=== PATIENT | female | born 1975 | race Caucasian/White ===

== ENCOUNTER 2023-03-26 10:41 | Emergency (ER) | payer MEDICAID ==
[~2023-03-26] VITALS: Ht 175.3 cm; Wt 100.0 kg
[~2023-03-26 10:41] MED LIST: BUSP5TAB26 PO; GABA300C PO; HYDR-3686 PO; LAMO25TA5 PO; PRAZ1CAP5 PO; PROP10TA10 PO; SERT150C PO; TRAZ-251 PO
[2023-03-26 11:41] LABS: URINE HCG NEGATIVE (NEG)
[2023-03-26 11:43] LABS: BILIRUBIN,URINE MODERATE (Neg); CLARITY,URINE CLOUDY (Clear); COLOR,URINE YELLOW (Yellow); GLUCOSE, URINE NEGATIVE (Neg); KETONES,URINE >=80 mg/dl (Neg); LEUKOCYTE ESTERASE ,URINE NEGATIVE (Neg); NITRITES, URINE NEGATIVE (Neg); OCCULT BLOOD,URINE NEGATIVE (Neg); PROTEIN,URINE NEGATIVE (Neg); UROBILINOGEN,URINE 0.2 E.U/dL (0.2-1.0)
[2023-03-26 11:44] LABS: UA COLLECTION TYPE VOIDED
[2023-03-26 12:06] LABS: URINE AMPHETAMINE SCREEN NEGATIVE (Neg); URINE BARBITUATE SCREEN NEGATIVE (Neg); URINE BENZODIAZEPINES SCREEN NEGATIVE (Neg); URINE CANNABINOID SCREEN POSITIVE (Neg); URINE COCAINE SCREEN NEGATIVE (Neg); URINE METHADONE SCREEN NEGATIVE (Neg); URINE OPIATE SCREEN NEGATIVE (Neg); URINE PHENCYCLIDINE SCREEN NEGATIVE (Neg)
[2023-03-26 12:15] LABS: BASOPHILS # (AUTO) 0.1 X10'3 (0-0.2); BASOPHILS % (AUTO) 1.6 % (0-1); EOSINOPHILS % (AUTO) 0.1 % (0-6); HEMATOCRIT 41.3 % (35.0-45.0); HEMOGLOBIN 13.8 g/dl (12.0-16.0); LYMPHOCYTES # (AUTO) 1.2 X10'3 (1.1-4.8); LYMPHOCYTES % (AUTO) 17.8 % (21-51); MEAN CORPUSCULAR HEMOGLOBIN 28.8 PG (27.0-31.0); MEAN CORPUSCULAR HGB CONC 33.5 g/dL (33.0-36.5); MEAN CORPUSCULAR VOLUME 85.9 FL (78-98); MEAN PLATELET VOLUME 7.7 FL (7.4-10.4); MONOCYTES # (AUTO) 0.6 X10'3 (0-0.9); MONOCYTES % (AUTO) 8.7 % (2-12); NEUTROPHILS % (AUTO) 71.8 % (42-75); PLATELET COUNT 381 X10'3 (140-440); RED BLOOD COUNT 4.81 X10'6 (4.20-5.60); RED CELL DISTRIBUTION WIDTH 15.3 % (11.5-14.5)
[2023-03-26 12:17] LABS: MUCUS STRANDS MANY /LPF (Neg); SQUAMOUS EPITHELIAL CELL,UR MANY /LPF (FEW)
[2023-03-26 12:18] LABS: BACTERIA,URINE 1+ /HPF (Neg); RBC,URINE 0-2 /HPF (0-2); WBC,URINE 0-4 /HPF (0-4)
[2023-03-26 12:21] LABS: ALANINE AMINOTRANSFERASE 68 U/L (12-78); ALBUMIN/GLOBULIN RATIO 0.7 (1.1-1.5); ALKALINE PHOSPHATASE 104 IU/L (46-116); ANION GAP 14 (8-16); ASPARTATE AMINO TRANSFERASE 73 U/L (10-37); BILIRUBIN,TOTAL 0.8 MG/DL (0.1-1.0); BLOOD UREA NITROGEN 11 MG/DL (7-18); BUN/CREATININE RATIO 10.9 (10.0-20.0); CALCIUM 9.3 MG/DL (8.5-10.1); CHLORIDE 100 MMOL/L (99-107); CREATININE 1.01 MG/DL (0.40-0.90); ETHANOL < 10 MG/DL (<10); GLUCOSE 209 MG/DL (70-104); SODIUM 137 MMOL/L (135-145); TOTAL PROTEIN 7.3 G/DL (6.4-8.2); eCRCL 72 ML/MIN; eGFR 59 ML/MIN
[2023-03-26 12:32] LABS: POTASSIUM 2.9 MMOL/L (3.5-5.1)
[2023-03-26] MEDS ORDERED: POTASSIUM BICARB 20meq eff tab 20 MEQ TABLET.EFF PO SCH ×2 (12:35→17:05)
[2023-03-26] MEDS ORDERED: POTASSIUM BICARB 20meq eff tab 20 MEQ TABLET.EFF PO ONE ×2 (12:35→17:05)
[2023-03-26] MEDS ORDERED: LORazepam 1 MG tablet PO ONE (13:20)
[2023-03-26 15:29] LABS: ACETAMINOPHEN < 2.0 UG/ML (10-30)
[2023-03-27 07:36] VITALS: BP 112/74; PULSE 82; O2SAT 99
[2023-03-27 08:57] VITALS: RESP 18
[2023-03-27] MEDS ORDERED: LORazepam 1 MG tablet PO ONE (11:15)
[2023-03-27] MEDS ORDERED: RISP2TAB85 PO (13:11)
[2023-03-27] MEDS ORDERED: BUSP5TAB3 PO (13:11)
[2023-03-27] MEDS ORDERED: TOP100T PO (13:11)
[2023-03-27] MEDS ORDERED: TRAZ-256 PO (13:13)
[2023-03-27] MEDS ORDERED: SERT-434 PO (13:13)
[2023-03-27] MEDS ORDERED: HYDR50TA65 PO (13:13)
[2023-03-27] MEDS ORDERED: LAMO25TA72 PO (13:25)
[2023-03-27 17:34] VITALS: TEMP 98.9
== END 2023-03-27 17:52 ==
LOC: ER 10:42
DX: T65.891A Toxic effect of other specified substances, accidental (unintentional), initial encounter (principal); F41.9 Anxiety disorder, unspecified; F32.A Depression, unspecified; Z20.822 Contact with and (suspected) exposure to COVID-19; Y92.89 Other specified places as the place of occurrence of the external cause
CPT/HCPCS: 36415; 80053; 80305; 80320; 80329; 81001; 81025; 84132; 84443; 85025; 87811; 93005; 99284

== ENCOUNTER 2024-03-29 16:09 | Inpatient (IN) | payer MEDICAID ==
[~2024-03-29] VITALS: Ht 175.3 cm; Wt 100.0 kg
[~2024-03-29 16:09] MED LIST changes: -BUSP5TAB26 PO; +BUSP5TAB3 PO; -HYDR-3686 PO; +HYDR50TA65 PO; -LAMO25TA5 PO; +LAMO25TA72 PO; +RISP-32 PO; +SERT-434 PO; -SERT150C PO; +TOP100T PO; -TRAZ-251 PO; +TRAZ-256 PO
[2024-03-29 16:37] LABS: BASOPHILS # (AUTO) 0.1 X10'3 (0-0.2); BASOPHILS % (AUTO) 1.5 % (0-1); EOSINOPHILS # (AUTO) 0.4 X10'3 (0-0.9); EOSINOPHILS % (AUTO) 5.2 % (0-6); HEMATOCRIT 39.9 % (35.0-45.0); HEMOGLOBIN 13.3 g/dl (12.0-16.0); LYMPHOCYTES # (AUTO) 2.2 X10'3 (1.1-4.8); LYMPHOCYTES % (AUTO) 30.4 % (21-51); MEAN CORPUSCULAR HEMOGLOBIN 28.7 PG (27.0-31.0); MEAN CORPUSCULAR HGB CONC 33.3 g/dL (33.0-36.5); MEAN CORPUSCULAR VOLUME 86.1 FL (78-98); MEAN PLATELET VOLUME 7.8 FL (7.4-10.4); MONOCYTES # (AUTO) 0.6 X10'3 (0-0.9); MONOCYTES % (AUTO) 8.3 % (2-12); NEUTROPHILS % (AUTO) 54.6 % (42-75); PLATELET COUNT 305 X10'3 (140-440); RED BLOOD COUNT 4.64 X10'6 (4.20-5.60); RED CELL DISTRIBUTION WIDTH 14.4 % (11.5-14.5); WHITE BLOOD COUNT 7.4 X10'3 (4.5-11.0)
[2024-03-29 16:42] LABS: BILIRUBIN,URINE NEGATIVE (Neg); CLARITY,URINE SLIGHTLY CLOUDY (Clear); COLOR,URINE YELLOW (Yellow); GLUCOSE, URINE NEGATIVE (Neg); KETONES,URINE NEGATIVE (Neg); LEUKOCYTE ESTERASE ,URINE TRACE (Neg); NITRITES, URINE NEGATIVE (Neg); OCCULT BLOOD,URINE LARGE (Neg); PROTEIN,URINE TRACE mg/dl (Neg); UROBILINOGEN,URINE 0.2 E.U/dL (0.2-1.0)
[2024-03-29 16:51] LABS: ALBUMIN 3.1 G/DL (3.4-5.0); ALBUMIN/GLOBULIN RATIO 0.7 (1.1-1.5); BILIRUBIN,TOTAL 0.2 MG/DL (0.1-1.0); CHLORIDE 107 MMOL/L (99-107); TOTAL PROTEIN 7.3 G/DL (6.4-8.2)
[2024-03-29 16:54] LABS: URINE AMPHETAMINE SCREEN NEGATIVE (Neg); URINE BARBITUATE SCREEN NEGATIVE (Neg); URINE BENZODIAZEPINES SCREEN NEGATIVE (Neg); URINE CANNABINOID SCREEN POSITIVE (Neg); URINE COCAINE SCREEN NEGATIVE (Neg); URINE METHADONE SCREEN NEGATIVE (Neg); URINE OPIATE SCREEN NEGATIVE (Neg); URINE PHENCYCLIDINE SCREEN NEGATIVE (Neg)
[2024-03-29 16:56] LABS: UA COLLECTION TYPE CLN CATCH MIDSTREAM
[2024-03-29 16:57] LABS: BACTERIA,URINE 1+ /HPF (Neg); RBC,URINE 20-50 /HPF (0-2); SQUAMOUS EPITHELIAL CELL,UR MODERATE /LPF (FEW)
[2024-03-29 16:58] LABS: TRANSITIONAL EPI CELLS,URINE FEW /HPF
[2024-03-30] MEDS ORDERED: LAMO100T PO (11:41)
[2024-03-30] MEDS ORDERED: SERT50TA PO (11:41)
[2024-03-30] MEDS ORDERED: ARIP10TA87 PO (11:41)
[2024-03-30] MEDS ORDERED: BUSP10TA3 PO (11:41)
[2024-03-30] MEDS ORDERED: GABA-1405 PO (11:41)
[2024-03-30] MEDS ORDERED: HYDR-3686 PO (11:41)
[2024-03-30] MEDS ORDERED: PROP20TA6 PO (11:41)
[2024-03-30] MEDS ORDERED: mag hydrox/Alum hydrox/simeth 30ml oral suspension PO PRN (13:50)
[2024-03-30] MEDS ORDERED: acetaminophen 325mg tablet PO PRN ×2 (13:50)
[2024-03-30] MEDS ORDERED: loperamide 2mg capsule PO PRN (13:50)
[2024-03-30] MEDS ORDERED: magnesium hydroxide 30ml (MOM) UD suspension PO PRN (13:50)
[2024-03-30] MEDS: LORazepam 1 MG tablet PO ONE (17:04)
[2024-03-30] MEDS: sertraline 50mg tablet PO SCH (17:04)
[2024-03-30 19:00] VITALS: RESP 16; O2SAT 98
[2024-03-30 20:00] VITALS: BP 118/77; PULSE 85; RESP 16; TEMP 97.6; O2SAT 98
[2024-03-30] MEDS: hydrOXYzine 25 MG tablet PO SCH (21:00)
[2024-03-30] MEDS: busPIRone 5mg tablet PO SCH (21:00)
[2024-03-30] MEDS: gabapentin 400mg capsule PO SCH (21:00)
[2024-03-30] MEDS: lamoTRIgine 100mg tablet PO SCH (21:00)
[2024-03-30] MEDS: propranolol 40mg tablet PO SCH (21:01)
[2024-03-30] MEDS: risperiDONE 2mg tablet PO SCH (21:01)
[2024-03-30] MEDS: traZODone 50mg tablet PO ONE (21:36)
[2024-03-31 06:14] LABS: HEMOGLOBIN A1C 5.4 % (4.5-6.2)
[2024-03-31 06:25] LABS: ALANINE AMINOTRANSFERASE 24 U/L (12-78); ALKALINE PHOSPHATASE 111 IU/L (46-116); ANION GAP 10 (8-16); ASPARTATE AMINO TRANSFERASE 17 U/L (10-37); BLOOD UREA NITROGEN 11 MG/DL (7-18); BUN/CREATININE RATIO 13.6 (10.0-20.0); CALCIUM 8.5 MG/DL (8.5-10.1); CREATININE 0.81 MG/DL (0.40-0.90); GLUCOSE 110 MG/DL (70-104); POTASSIUM 4.5 MMOL/L (3.5-5.1); SODIUM 141 MMOL/L (135-145); TOTAL CARBON DIOXIDE 23.6 MMOL/L (24-32); eCRCL 89 ML/MIN; eGFR 75 ML/MIN
[2024-03-31 06:34] LABS: CHOL/HDL RATIO 4.8 (0.00-4.99); CHOLESTEROL 198 MG/DL (0-200); ETHANOL < 10 MG/DL (<10); HDL CHOLESTEROL 41 MG/DL (35-60); LDL CHOLESTEROL 90 MG/DL (50-100); TRIGLYCERIDES 263 MG/DL (20-135)
[2024-03-31 07:00] VITALS: RESP 12; O2SAT 97
[2024-03-31 08:00] VITALS: BP 143/86; PULSE 92; RESP 12; TEMP 97.6; O2SAT 97
[2024-03-31] MEDS ORDERED: aripiprazole 10MG tablet PO SCH (08:00)
[2024-03-31] MEDS ORDERED: sertraline 50mg tablet PO SCH (08:00)
[2024-03-31 19:00] VITALS: RESP 18; O2SAT 96
[2024-03-31 19:48] VITALS: BP 102/60; PULSE 94; RESP 18; TEMP 98.2; O2SAT 96
[2024-03-31] MEDS: traZODone 50mg tablet PO SCH (21:25)
[2024-04-01 07:00] VITALS: RESP 14; O2SAT 96
[2024-04-01 08:00] VITALS: BP 101/61; PULSE 93; RESP 14; TEMP 97.8; O2SAT 96
[2024-04-01] MEDS: busPIRone 5mg tablet PO SCH (12:21)
[2024-04-01 20:00] VITALS: BP 110/73; PULSE 88; RESP 16; TEMP 97.9; O2SAT 96
[2024-04-02 07:00] VITALS: RESP 16; O2SAT 95
[2024-04-02 08:22] VITALS: BP 116/81; PULSE 108; RESP 16; TEMP 97.8; O2SAT 95
[2024-04-02] MEDS: oxymetazoline 15 ML nasal spray NS SCH (19:33)
[2024-04-02 19:47] VITALS: RESP 18; O2SAT 95
[2024-04-02 20:04] VITALS: BP 110/77; PULSE 110; RESP 18; TEMP 98.3; O2SAT 95
[2024-04-03 07:00] VITALS: BP 114/71; PULSE 88; RESP 16; TEMP 98; O2SAT 97
[2024-04-03 19:00] VITALS: RESP 18; O2SAT 95
[2024-04-03 20:00] VITALS: BP 94/62; PULSE 80; RESP 14; TEMP 97.3; O2SAT 95
[2024-04-04 07:00] VITALS: RESP 16; O2SAT 97
[2024-04-04 08:00] VITALS: BP 122/68; PULSE 91; RESP 16; TEMP 97.4; O2SAT 97
[2024-04-04] MEDS ORDERED: BUSP5TAB26 PO (11:11)
[2024-04-04] MEDS ORDERED: SERT-433 PO (11:11)
[2024-04-04 19:00] VITALS: RESP 16; O2SAT 98
[2024-04-04 20:00] VITALS: BP 106/73; PULSE 83; RESP 16; TEMP 97.4; O2SAT 98
[2024-04-05] VITALS (8 sets, daily range): BP systolic 106–123; BP diastolic 73–88; PULSE 80–84; RESP 12–16; TEMP 97.2–98.9; O2SAT 97–98
[2024-04-05] MEDS: fluticasone nasal spray 16GM bottle NS SCH (07:34)
[2024-04-05] MEDS: aripiprazole 10MG tablet PO SCH (07:34)
[2024-04-05] MEDS: salt irrigation nasal spray 45 ML SPRAY NS SCH (07:35)
[2024-04-05] MEDS: acetaminophen 325mg tablet PO PRN (07:36)
[2024-04-06 07:00] VITALS: RESP 16; O2SAT 97
[2024-04-06 07:45] VITALS: BP 112/86; PULSE 84; RESP 16; TEMP 98.4; O2SAT 97
== END 2024-04-06 09:53 | disposition home or self-care (01) | DRG 751 ==
LOC: ER 16:09 → ED HOLD 03-30 09:15 → UNDOADMIN 03-30 09:15 → ED HOLD 03-30 10:50 → ADULT MH 03-30 10:50
PROVIDERS: ADMIT Psychiatry & Neurology Psychiatry; ATTEND Psychiatry & Neurology Psychiatry
PROC: GZHZZZZ Group Psychotherapy (ICD-10-PCS; principal; 2024-03-30)
PROC: GZ51ZZZ Individual Psychotherapy, Behavioral (ICD-10-PCS; 2024-03-30)
DX: F33.9 Major depressive disorder, recurrent, unspecified (principal); R45.851 Suicidal ideations; F43.10 Post-traumatic stress disorder, unspecified; Z20.822 Contact with and (suspected) exposure to COVID-19; J98.8 Other specified respiratory disorders; Z79.899 Other long term (current) drug therapy; Z91.51 Personal history of suicidal behavior; Z88.8 Allergy status to other drugs, medicaments and biological substances
CPT/HCPCS: 36415; 80053; 80061; 80305; 80320; 81001; 83036; 84443; 85025; 87081; 87088; 87811; 99285; Q0177

== ENCOUNTER 2024-10-11 06:58 | Emergency (ER) | payer MEDICAID ==
[~2024-10-11] VITALS: Ht 175.3 cm; Wt 85.5 kg
[~2024-10-11 06:58] MED LIST changes: +ARIP10TA87 PO; +BUSP5TAB26 PO; -BUSP5TAB3 PO; +GABA-1405 PO; -GABA300C PO; -HYDR50TA65 PO; +LAMO100T PO; -LAMO25TA72 PO; -PRAZ1CAP5 PO; -PROP10TA10 PO; +PROP20TA6 PO; -RISP-32 PO; +SERT-433 PO; -SERT-434 PO; -TOP100T PO; -TRAZ-256 PO
[2024-10-11 07:09] VITALS: BP 127/87; PULSE 120; RESP 18; O2SAT 100
--- NOTE | 2024-10-11 07:35 | Physician Documentation ---
History of Present Illness ~ Chief Complaint: Medical Clearance Stated Complaint: MEDICAL CLEARANCE Time Seen by MD: 07:13 Primary Medical Doctor: DR. JAEGER Source: patient Mode of Arrival: Police Exam Limitations: no limitations HPI Patient in for medical clearance for incarceration. History of anxiety and dep ression. History of essential tremor. Denies any problems today. Tetanus within 5 years?: No Medication Reconciliation Allergies: Coded Allergies: fluoxetine (Verified Allergy, Intermediate, RASH, 03/29/24) Scheduled Aripiprazole (Aripiprazole), 1 TAB PO DAILY, (Reported) Buspirone Hcl (Buspirone Hcl), 10 MG PO TID Gabapentin (Gabapentin), 2 TAB PO BID, (Reported) Lamotrigine (LaMICtal tablet), 1 TAB PO HS, (Reported) Propranolol Hcl (Propranolol Hcl), 1 TAB PO BID, (Reported) Sertraline HCl (Sertraline HCl), 200 MG PO DAILY Past Medical History Past Medical History: No Pertinent History, Anxiety, Depression Past Surgical History: noncontributory Patient History: Anxiety disorder MOTHER FH: depression MOTHER Review of Systems All Other Systems at this time: Reviewed and Negative Physical Exam Vital Signs: Heart Rate: 120, Respiratory Rate: 18, BP: 127/87, Pulse Oximetry: 100, Weight: 85.450 Oxygen Flow Rate: 0 General Appearance: alert, WD/WN Head: no evidence of injury Pupils/EOM/Fundus: PERRLA, EOM intact Mouth: normal inspection Neck: non-tender, full range of motion Respiratory: lungs clear, normal breath sounds, no respiratory distress Chest: no accessory muscle use Cardiovascular: regular rate, rhythm, no murmur Gastrointestinal: normal palpation, non-tender Skin: warm/dry, normal color Neurologic: oriented x4, memory intact Motor / Sensory: no motor deficit, no sensory deficit Cerebellar Function: tremor Affect: appropriate Appearance/Memory/Insight: appropriate appearance Thoughts/Hallucinations: normal thought pattern Behavior/Eye contact/Speech: cooperative Progress Progress Note Patient in for medical clearance. Unremarkable exam and at baseline. Medically cleared for retirement. Results/Orders Results/Orders Vital Signs 10/11/24 10/11/24 07:04 07:09 Pulse 120 Resp 18 B/P (MAP) 127/87 Pulse Ox 100 O2 Flow Rate 0 Departure Impression: Primary Impression: Medical clearance for incarceration Condition: Stable Additional Instructions: Follow-up with your doctor as needed. Medically cleared for incarceration. Referrals: NO PRIMARY CARE PROVIDER (PCP) Education Educated: Patient Educated regarding: diagnosis, need for follow up Signature Scribe Signature: No scribe used Attestation: No scribe used FREDDIE NARAYAN MD Oct 11, 2024 07:35
== END 2024-10-11 07:59 ==
LOC: ER 07:00
DX: Z02.89 Encounter for other administrative examinations (principal); Z88.8 Allergy status to other drugs, medicaments and biological substances
CPT/HCPCS: 99283